=== PATIENT | female | born 1940 | race Asian ===

== ENCOUNTER 2018-10-19 10:27 | Emergency (ER) | payer MEDICARE, MEDICAID ==
[~2018-10-19] VITALS: Ht 152.4 cm; Wt 63.5 kg
[2018-10-19 10:27] VITALS: BP 88/43
[2018-10-19] MEDS ORDERED: NACL 0.9% 1,000 ML IV ONE (10:39)
[2018-10-19] MEDS ORDERED: NACL 0.9% 1,000 ML IV SCH (10:39)
[2018-10-19] MEDS ORDERED: AMLO5TAB PO (10:48)
[2018-10-19] MEDS ORDERED: CLOP75TA55 PO (10:48)
[2018-10-19] MEDS ORDERED: ISOS20TA11 PO (10:48)
[2018-10-19] MEDS ORDERED: PRAV20TA2 PO (10:48)
[2018-10-19] MEDS ORDERED: VALS40TA3 PO (10:48)
--- NOTE | 2018-10-19 11:23 | NUR ---
ASSUMED PATIENT CARE, NURSING ASSESSMENT COMPLETED. SEEN AND EVALUATED BY , RODGER COMPLETED. PATIENT ARRIVED VIA AMBULANCE FOR AMS, ON ARRIVAL PATIENT IS ALERT, AWAKE, AND CONVERSING WITH SON WHO IS AT THE BEDSIDE, IN [place].
[2018-10-19 11:27] LABS: BASOPHILS # (AUTO) 0.1 K/uL (0.00-0.22); BASOPHILS % (AUTO) 1.1 % (0.0-2.0); EOSINOPHILS # (AUTO) 0.4 K/uL (0-0.4); EOSINOPHILS % (AUTO) 3.9 % (0.0-4.0); HEMATOCRIT 36.8 % (36-48); HEMOGLOBIN 12.1 g/dL (12.0-16.0); LYMPHOCYTES # (AUTO) 2.3 K/uL (2.5-16.5); MEAN CORPUSCULAR HEMOGLOBIN 31 pg (27-31); MEAN CORPUSCULAR HGB CONC 33 g/dL (33-37); MEAN CORPUSCULAR VOLUME 93.7 fL (80-94); MONOCYTES # (AUTO) 0.6 K/uL (0.8-1.0); MONOCYTES % (AUTO) 6.1 % (1.7-9.3); NEUTROPHILS # (AUTO) 5.7 K/uL (1.8-7.7); NEUTROPHILS % (AUTO) 62.9 % (42.2-75.2); PLATELET COUNT (AUTO) 266 K/uL (140-450); RED BLOOD CELL COUNT(AUTO) 3.92 MIL/uL (4.20-5.40); RED CELL DISTRIBUTION WIDTH 13.4 % (11.6-13.7)
[2018-10-19 11:31] LABS: ANION GAP 6.8 (8-16); CARBON DIOXIDE 27.2 mmol/L (21-32); CHLORIDE 108 mmol/L (98-107); CREATININE 1.4 mg/dL (0.6-1.3); GLUCOSE 219 mg/dL (74-106); SODIUM SERUM 138 mmol/L (136-145); UREA NITROGEN, BLOOD 27 mg/dL (7-18)
[2018-10-19 11:37] LABS: ALBUMIN 3.3 g/dL (3.4-5.0); ASPARTATE AMINOTRANSFERASE 10 U/L (15-37); LIPASE 109 U/L (73-393); TOTAL BILIRUBIN 0.4 mg/dL (0.0-1.0)
[2018-10-19] MEDS ORDERED: GLUCAGON 1 MG VIAL IVP ONE (13:20)
--- NOTE | 2018-10-19 14:40 | NUR ---
EDMD MADE AWARE PT UNABLE TO PROVIDE ENOUGH URINE FOR UA X 2.
[2018-10-19 14:59] VITALS: BP 117/69
--- NOTE | 2018-10-19 14:59 | NUR ---
Patient discharged with v/s stable. Written and verbal after care instructions given and explained to family. Patient alert, oriented and verbalized understanding of instructions. Ambulatory with steady gait. All questions addressed prior to discharge. ID band removed. Patient advised to follow up with PMD. Opportunity to ask questions provided and answered.
== END 2018-10-19 10:33 | disposition home or self-care (01) ==
LOC: MED 10:27
DX: R55 Syncope and collapse (principal); I10 Essential (primary) hypertension; Z79.899 Other long term (current) drug therapy
CPT/HCPCS: 36415; 70450; 71045; 80053; 83690; 84484; 85025; 86886; 86900; 86901; 93005; 96361; 96374; 99284; J1610; J7030; Q0092